=== PATIENT | female | born 1970 | race Caucasian/White ===

== ENCOUNTER 2016-07-17 11:58 | Day surgery (SDC) | payer OTHER ==
[~2016-07-17] VITALS: Ht 157.5 cm; Wt 62.0 kg
[~2016-07-17 11:58] MED LIST: CETI10TA24 PO; IBUP200T48 PO; MULT-516 PO
[2016-07-17] MEDS ORDERED: LACTATED RINGERS 1,000 ML IV SCH (12:44)
[2016-07-17 12:45] VITALS: BP 125/83
[2016-07-17 13:52] LABS: HCG UR OBC PASS
[2016-07-17] MEDS ORDERED: SCOPOLAMINE PATCH, 1.5MG PATCH.TD72 TD ONE (14:16)
[2016-07-17] MEDS ORDERED: FENTANYL PF 250 MCG/5ML ONE (14:21)
[2016-07-17] MEDS ORDERED: MIDAZOLAM 1 MG/ML, 2ML ONE (14:22)
[2016-07-17] MEDS ORDERED: KETOROLAC 30 MG/1 ML ONE (14:29)
[2016-07-17] MEDS ORDERED: ONDANSETRON 2MG/ML, 2ML ONE (14:29)
[2016-07-17] MEDS ORDERED: GLYCOPYRROLATE 0.2MG/1ML ONE (14:29)
[2016-07-17] MEDS ORDERED: CEFOTETAN 2 GM ONE (14:29)
[2016-07-17] MEDS ORDERED: DEXAMETHASONE 4 MG/ML, 1ML ONE (14:29)
[2016-07-17] MEDS ORDERED: NEOSTIGMINE 1 MG/ML, 10ML ONE (14:29)
[2016-07-17] MEDS ORDERED: PROPOFOL 10 MG/ML, 20ML ONE (14:29)
[2016-07-17] MEDS ORDERED: ROCURONIUM 10 MG/ML ONE (14:29)
[2016-07-17] MEDS ORDERED: BUPIVACAINE/PF-EPI 0.25% 1:200K INFIL ONE (15:05)
[2016-07-17] MEDS ORDERED: KETOROLAC 30 MG/1 ML IV PRN (15:30)
[2016-07-17] MEDS ORDERED: ACETAMINOPHEN 325 MG TABLET PO PRN (15:30)
[2016-07-17] MEDS ORDERED: FENTANYL PF 100 MCG/2ML IV PRN (15:30)
[2016-07-17] MEDS ORDERED: PROMETHAZINE 25 MG/ML, 1ML IV PRN (15:30)
[2016-07-17] MEDS ORDERED: MEPERIDINE/PF 25MG/0.5ML IVPush PRN (15:30)
[2016-07-17] MEDS ORDERED: HYDROcodone/APAP 7.5-325MG/15ML UDC PO PRN (15:30)
[2016-07-17] MEDS ORDERED: ONDANSETRON 2MG/ML, 2ML IVPush PRN (15:30)
[2016-07-17] MEDS ORDERED: HYDROmorphone 1 MG/ML, 1ML IV PRN (15:30)
[2016-07-17] MEDS ORDERED: MIDAZOLAM 1 MG/ML, 2ML IV PRN (15:30)
[2016-07-17] MEDS ORDERED: OXYcodone 5 MG/5 ML ORAL.SOL UDC PO PRN (15:30)
[2016-07-17] MEDS ORDERED: FENTANYL PF 100 MCG/2ML ONE ×2 (16:28→16:52)
[2016-07-17] MEDS ORDERED: HYDROmorphone 2 MG/ML, 1ML ONE (16:52)
[2016-07-17] MEDS ORDERED: MEPERIDINE/PF 25MG/0.5ML ONE (16:56)
[2016-07-17] MEDS ORDERED: ACETAMINOPHEN 325 MG TABLET ONE (17:13)
[2016-07-17] MEDS ORDERED: OXYcodone 5 MG/5 ML ORAL.SOL UDC ONE (17:13)
== END 2016-07-17 20:00 | disposition home or self-care (01) ==
LOC: OUT 11:58
PROVIDERS: ATTEND Specialist
DX: D27.1 Benign neoplasm of left ovary (principal); N83.11 Corpus luteum cyst of right ovary; N80.0 Endometriosis of uterus
CPT/HCPCS: 36415; 58571; 81025; 86850; 86900; 86923; 88307; J1100; J1170; J1885; J2175; J2250; J2405; J2704; J2710; J3010; J7120; S2900; J3490; S0074